=== PATIENT | female | born 1995 | race Caucasian/White ===

== ENCOUNTER 2021-08-23 11:00 | Outpatient (CLI) | payer OTHER, MEDICAID, SELFPAY ==
[2021-08-23 12:25] LABS: Hematocrit 39.9 % (37-47); Hemoglobin 13.1 g/dL (12.0-15.0); Mean Corp Hgb Conc 32.8 g/dL (32-36); Mean Corpuscular Hgb 29.5 pg (27.0-32.0); Mean Corpuscular Volume 89.9 fL (81-99); Mean Platelet Vol. 9.7 fl (6.2-12.0); Platelet Count 234 K/mm3 (150-450); RBC Distribution Width CV 12.7 % (11.6-14.6); RBC Distribution Width SD 42.1 fl (35.1-43.9); Red Blood Count 4.44 M/mm3 (4.2-5.4)
[2021-08-23 12:46] LABS: Estradiol 38.8 pg/mL; Follicle Stimulating Hormone 5.3 mIU/mL; Luteinizing Hormone 16.4 mIU/mL; Thyroid Stim Hormone (TSH) 2.61 uIU/mL (0.358-3.74)
[2021-08-25 08:11] LABS: Chlamydia By Nucleic Acid AMP Negative (Negative)
[2021-08-25 15:48] LABS: Gonococcus By Nucleic Acid AMP Negative (Negative)
[2021-08-26 14:44] LABS: Testosterone Free 1.8 pg/mL (0.0-4.2)
[2021-08-29 18:55] LABS: HPV Reflexed? NOT INDICATED
== END 2021-08-23 23:59 | disposition home or self-care (01) ==
LOC: WOBLAB 11:05
PROVIDERS: Visit Provider Obstetrics & Gynecology
DX: N93.9 Abnormal uterine and vaginal bleeding, unspecified (principal)
CPT/HCPCS: 36415; 82670; 83001; 83002; 84402; 84439; 84443; 85027; 87491; 87591; 88175; G0145